=== PATIENT | male | born 1960 | race Caucasian/White ===

== ENCOUNTER 2024-06-14 18:53 | Inpatient (IN) | payer MEDICARE, BC ==
[~2024-06-14] VITALS: Ht 188 cm; Wt 95.7 kg
[2024-06-14] MEDS ORDERED: LORA-259 PO (19:17)
[2024-06-14] MEDS ORDERED: LAMO25TA16 PO (19:17)
[2024-06-14] MEDS ORDERED: FENO54TA PO (19:17)
[2024-06-14] MEDS ORDERED: ATOR20TA PO (19:17)
[2024-06-14] MEDS ORDERED: OLAN15TA3 PO (19:17)
[2024-06-14] MEDS ORDERED: DIVA250T4 PO (19:17)
[2024-06-14] MEDS ORDERED: METF-442 PO (19:17)
[2024-06-14] MEDS ORDERED: TRAZ-257 PO (19:17)
[2024-06-14] MEDS ORDERED: ESCI10TA PO (19:17)
[2024-06-14] MEDS ORDERED: TEMAZEPAM 7.5 MG CAPSULE PO PRN ×2 (23:15)
[2024-06-14] MEDS ORDERED: MAG HYDROX/AL HYDROX/SIMETH 30 ML LIQUID UDC PO PRN (23:15)
[2024-06-14] MEDS ORDERED: LORAZEPAM 1 MG TABLET PO PRN (23:15)
[2024-06-14] MEDS ORDERED: MAGNESIUM HYDROXIDE 30 ML LIQUID UDC PO PRN (23:15)
[2024-06-14] MEDS: BLOOD SUGAR DIAGNOSTIC 1 EACH STRIP VI ONE (23:50)
[2024-06-15 08:18] VITALS: BP 138/84; TEMP 97.7; O2SAT 99
[2024-06-15] MEDS: OLANZAPINE 5 MG TABLET PO SCH ×2 (12:39→20:38)
[2024-06-15] MEDS: DIVALPROEX 250 MG TABLET.DR PO SCH (12:41)
[2024-06-15] MEDS: NEOMY/BACITRAC/POLYMI OINT 28.35 GM TUBE TOP SCH (12:42)
[2024-06-15 16:05] VITALS: BP 138/84; TEMP 98; O2SAT 97
[2024-06-15] MEDS: LORAZEPAM 0.5 MG TABLET PO PRN (17:01)
[2024-06-15] MEDS: ACETAMINOPHEN 325 MG TABLET PO PRN (17:02)
[2024-06-15 20:08] VITALS: BP 130/59; TEMP 98; O2SAT 98
[2024-06-16 07:43] LABS: BASOPHILS % (AUTO) 0.1 % (0.0-2.0); EOSINOPHILS % (AUTO) 0.3 % (0.0-7.0); HEMOGLOBIN 14.4 g/dL (12.5-16.3); LYMPHOCYTES # (AUTO) 1.8 K/uL (0.8-4.8); LYMPHOCYTES % (AUTO) 33.9 % (20.5-51.5); MEAN CORPUSCULAR HEMOGLOBIN 30.3 uug (23.8-33.4); MEAN CORPUSCULAR HGB CONC 34 g/dL (32.5-36.3); MEAN CORPUSCULAR VOLUME 88.8 fL (73.0-96.2); MONOCYTES # (AUTO) 0.5 K/uL (0.1-1.30); MONOCYTES % (AUTO) 10.2 % (0.0-11.0); NEUTROPHILS # (AUTO) 2.9 K/uL (1.8-8.9); NEUTROPHILS % (AUTO) 55.5 % (38.5-71.5); PLATELET COUNT (AUTO) 295 K/uL (152-348); RED BLOOD CELL COUNT(AUTO) 4.73 MIL/uL (4.06-5.63); RED CELL DISTRIBUTION WIDTH 14.3 % (12.1-16.2); WHITE BLOOD COUNT (AUTO) 5.3 K/uL (3.6-10.2)
[2024-06-16 07:50] LABS: DIFFERENTIAL COMMENT 1
[2024-06-16 08:13] VITALS: BP 129/58; TEMP 98; O2SAT 98
[2024-06-16] MEDS: LORAZEPAM 1 MG TABLET PO PRN (08:17)
[2024-06-16 08:35] LABS: BILIRUBIN,TOTAL 0.5 mg/dL (0.2-1.0); CALCIUM 9.2 mg/dL (8.5-10.1); CREATININE 0.9 mg/dL (0.6-1.3); MAGNESIUM 1.9 mg/dL (1.8-2.4); PHOSPHOROUS 3.7 mg/dL (2.5-4.9); POTASSIUM 4.8 mmol/L (3.5-5.1); TOTAL PROTEIN, SERUM 7.9 g/dL (6.4-8.2)
[2024-06-16 09:15] LABS: THYROID STIMULATING HORMONE 1.403 mIU/mL (0.358-3.740)
[2024-06-16] MEDS: DIVALPROEX 500 MG TABLET.DR PO SCH ×2 (13:45→21:24)
[2024-06-16] MEDS: OLANZAPINE 5 MG TABLET PO SCH ×2 (13:45→21:24)
[2024-06-16 16:23] VITALS: BP 136/68; TEMP 98; O2SAT 96
[2024-06-16 22:16] VITALS: BP 114/59; TEMP 99.3; O2SAT 96
[2024-06-17 08:22] VITALS: BP 132/80; TEMP 98.2; O2SAT 100
[2024-06-17] MEDS ORDERED: LAMOTRIGINE 100 MG TABLET PO SCH (11:30)
[2024-06-17] MEDS: OLANZAPINE 10 MG VIAL IM ONE (14:46)
[2024-06-17 15:48] VITALS: BP 141/81; TEMP 98; O2SAT 100
[2024-06-17] MEDS: VALPROIC ACID 250 MG/5 ML LIQUID UDC PO SCH (16:58)
[2024-06-17] MEDS ORDERED: DIVALPROEX 250 MG TABLET.DR PO SCH (17:00)
[2024-06-17 20:00] VITALS: BP 120/85; TEMP 98.4; O2SAT 96
[2024-06-17] MEDS: OLANZAPINE ZYDIS 5 MG TAB.RAPDIS PO SCH (20:28)
[2024-06-17] MEDS: DIVALPROEX 250 MG TABLET.DR PO ONE (21:39)
[2024-06-18] MEDS ORDERED: OLANZAPINE 5 MG TABLET PO SCH ×2 (08:00→13:00)
[2024-06-18 08:04] VITALS: BP 109/73; TEMP 98; O2SAT 100
[2024-06-18] MEDS: OLANZAPINE ZYDIS 5 MG TAB.RAPDIS PO SCH (09:10)
[2024-06-18 16:58] VITALS: BP 184/107; TEMP 97.6; O2SAT 100
[2024-06-18 20:00] VITALS: BP 129/55; TEMP 98.4; O2SAT 100
[2024-06-19 07:48] VITALS: BP 138/65; TEMP 98; O2SAT 99
== END 2024-06-19 15:10 | DRG 885 ==
LOC: ER 18:53 → GPS 19:40 → UNDOADMIN 21:40 → MEDSURG3 21:40 → GPS 06-16 23:18
PROVIDERS: ADMIT Psychiatry & Neurology Psychosomatic Medicine; ATTEND Internal Medicine
DX: F29 Unspecified psychosis not due to a substance or known physiological condition (principal); G93.41 Metabolic encephalopathy; H91.93 Unspecified hearing loss, bilateral; Z87.820 Personal history of traumatic brain injury; Z91.83 Wandering in diseases classified elsewhere; E78.5 Hyperlipidemia, unspecified; G40.909 Epilepsy, unspecified, not intractable, without status epilepticus; S06.9XAS Unspecified intracranial injury with loss of consciousness status unknown, sequela; Z91.148 Patient's other noncompliance with medication regimen for other reason; Z88.0 Allergy status to penicillin; Z79.84 Long term (current) use of oral hypoglycemic drugs; E11.9 Type 2 diabetes mellitus without complications; R41.9 Unspecified symptoms and signs involving cognitive functions and awareness; R26.81 Unsteadiness on feet; Z79.899 Other long term (current) drug therapy; F39 Unspecified mood [affective] disorder
CPT/HCPCS: 36415; 80164; 83735; 84100; 84443; 85025; A4606; A4663; J2358; J3490